=== PATIENT | male | born 1990 ===

== ENCOUNTER 2018-01-06 15:13 | Emergency (ER) | payer MEDICAID, OTHER ==
[2018-01-06 15:15] VITALS: RESP 18; TEMP 98.7; O2SAT 100
[2018-01-06 15:21] VITALS: BMI 26.2
[2018-01-06] MEDS ORDERED: Sodium Chloride 0.9% 1,000 ML IV STA (16:01)
--- NOTE | 2018-01-06 16:17 | RAD ---
HISTORY: SOB COMPARISON: No prior. FINDINGS: LUNGS: No active pulmonary disease. PLEURA: No significant pleural effusion identified, no pneumothorax apparent. CARDIOVASCULAR: Normal. OSSEOUS STRUCTURES: No significant abnormalities. VISUALIZED UPPER ABDOMEN: Normal. OTHER FINDINGS: None. IMPRESSION: No active disease.
[2018-01-06 16:31] LABS: BASO # 0.06 K/mm3 (0.0-2.0); BASO % 0.9 % (0.0-3.0); EOS # 0.1 (0.0-0.7); EOS % 1.1 % (1.5-5.0); GRAN # 4.23 (1.4-6.5); GRAN % 64.3 % (50.0-68.0); LYMPH # 1.8 (1.2-3.4); LYMPH % 26.9 % (22.0-35.0); MEAN CORPUSCULAR HEMOGLOBIN 32.7 pg (25.0-35.0); MEAN CORPUSCULAR HGB CONC 34.4 g/dl (31.0-37.0); MEAN PLATELET VOLUME 12.1 fl (7.0-11.0); MONO # 0.5 (0.1-0.6); MONO % 6.8 % (1.0-6.0); RBC 4.59 10^6/uL (3.5-6.1); RED CELL DISTRIBUTION WIDTH 12.9 % (11.5-14.5); WHITE BLOOD COUNT 6.6 10^3/ul (4.5-11.0)
[2018-01-06 16:39] LABS: ALB/GLOB RATIO 1.5 (1.1-1.8); ALBUMIN 4.3 g/dL (3.0-4.8); ALT/SGPT 51 U/L (7-56); AST/SGOT 38 U/L (17-59); BLOOD UREA NITROGEN 12 mg/dL (7-21); CALCIUM 9.5 mg/dL (8.4-10.5); GFR AFRICAN-AMERICAN > 60; GFR NON-AFRICAN AMERICAN > 60
[2018-01-06 16:45] LABS: URINE BILIRUBIN NEGATIVE (NEGATIVE); URINE BLOOD NEGATIVE (NEGATIVE); URINE GLUCOSE (UA) NEGATIVE (NEGATIVE); URINE LEUKOCYTE ESTERASE NEGATIVE Leu/uL (NEGATIVE); URINE PROTEIN NEGATIVE mg/dL (<30 mg/dL); URINE UROBILINOGEN 0.2 E.U./dL (<1 E.U./dL)
[2018-01-06 16:55] LABS: BARBITURATES, UR NEGATIVE (NEGATIVE); BENZODIAZEPINES, UR NEGATIVE (NEGATIVE); OPIATES, UR NEGATIVE (NEGATIVE); PHENCYCLIDINE, UR NEGATIVE (NEGATIVE)
[2018-01-06 16:57] LABS: TROPONIN I < 0.01 ng/mL
--- NOTE | 2018-01-06 17:04 | ED PDOC ---
Arrival/HPI - General Chief Complaint: Shortness Of Breath Time Seen by Provider: 01/06/18 15:32 Historian: Patient - History of Present Illness Narrative History of Present Illness (Text): 01/06/18 17:01 27yo male with no Past medical history who present with complaint of SOB and generalized abdominal pain since earlier today. Notes that the abdominal pain started 2wweeks ago and SOB started this morning after smoking Marijuana. He denies chest pain, diaphoresis, nausea, vomiting, diarrhea, constipation, fever , chills, sick contact, LE edema, calf pain, cough, any other complaint. Past Medical History - Provider Review Nursing Documentation Reviewed: Yes - Infectious Disease Hx of Infectious Diseases: None - Tetanus Immunization Tetanus Immunization: Unknown - Past Medical History Past Medical History: No Previous - Psychiatric Hx Depression: No Hx Emotional Abuse: No Hx Physical Abuse: No Hx Substance Use: No - Past Surgical History Past Surgical History: No Previous - Suicidal Assessment Feels Threatened In Home Enviroment: No Family/Social History - Physician Review Nursing Documentation Reviewed: Yes Family/Social History: Unknown Family HX Smoking Status: Light Smoker < 10 Cigarettes Daily Hx Alcohol Use: Yes Frequency of alcohol use: Few days per week Hx Substance Use: No Hx Substance Use Treatment: No Allergies/Home Meds Allergies/Adverse Reactions: Allergies No Known Allergies Allergy (Verified 01/06/18 15:29) Review of Systems - Physician Review All systems were reviewed & negative as marked: Yes - Review of Systems Constitutional: Normal Eyes: Normal ENT: Normal Respiratory: SOB. absent: Cough, Wheezing Cardiovascular: Normal Gastrointestinal: Abdominal Pain. absent: Stool Changes, Constipation, Diarrhea , Nausea, Vomiting, Hematochezia, Hematemesis Genitourinary Male: Normal Musculoskeletal: Normal Skin: Normal Neurological: Normal Endocrine: Normal Hemo/Lymphatic: Normal Psychiatric: Normal Physical Exam Vital Signs Reviewed: Yes Vital Signs Temp Pulse Resp BP Pulse Ox 01/06/18 18:01 67 18 110/72 100 01/06/18 18:00 18 01/06/18 15:14 98.7 F 86 18 127/82 100 Temperature: Afebrile Blood Pressure: Normal Pulse: Regular Respiratory Rate: Normal Appearance: Positive for: Well-Appearing, Non-Toxic, Comfortable Pain Distress: None Mental Status: Positive for: Alert and Oriented X 3 - Systems Exam Head: Present: Atraumatic, Normocephalic Pupils: Present: PERRL Extroacular Muscles: Present: EOMI Conjunctiva: Present: Normal Mouth: Present: Moist Mucous Membranes Neck: Present: Normal Range of Motion Respiratory/Chest: Present: Clear to Auscultation, Good Air Exchange. No: Respiratory Distress, Accessory Muscle Use, Wheezes, Decreased Breath Sounds, Rales, Retracting, Rhonchi Cardiovascular: Present: Regular Rate and Rhythm, Normal S1, S2. No: Murmurs Abdomen: Present: Normal Bowel Sounds, Other (Soft). No: Tenderness, Distention , Peritoneal Signs, Rebound, Guarding, McBurney's Point Tender, Rovsing's Sign Present Back: Present: Normal Inspection Upper Extremity: Present: Normal Inspection. No: Cyanosis, Edema Lower Extremity: Present: Normal Inspection. No: Edema Neurological: Present: GCS=15, CN II-XII Intact, Speech Normal Skin: Present: Warm, Dry, Normal Color. No: Rashes Psychiatric: Present: Alert, Oriented x 3, Normal Insight, Normal Concentration Medical Decision Making ED Course and Treatment: 01/06/18 18:02 PT in emergency department for stated history. He was not hypoxic and not in any distress. his lab was unremarkable. 3l of NC was placed while he was in emergency department. He was hydrated and pepcid was given. On re evaluation pt notes complete resolution of his symptoms. His symptom, SOB is likely related to his substance abuse. He was advised to stop using drug and was DC home with pepcid. Referred to his PMD/GI. - Lab Interpretations Lab Results: 01/06/18 16:00 01/06/18 16:00 Lab Results 01/06/18 16:00: Urine Opiates Screen Negative, Urine Methadone Screen Negative, Ur Barbiturates Screen Negative, Ur Phencyclidine Scrn Negative, Ur Amphetamines Screen Negative, U Benzodiazepines Scrn Negative, U Oth Cocaine Metabols Negative, U Cannabinoids Screen Positive H 01/06/18 16:00: Urine Color Yellow, Urine Appearance Clear, Urine pH 6.0, Ur Specific [place] 1.015, Urine Protein Negative, Urine Glucose (UA) Negative, Urine Ketones Negative, Urine Blood Negative, Urine Nitrate Negative, Urine Bilirubin Negative, Urine Urobilinogen 0.2, Ur Leukocyte Esterase Negative 01/06/18 16:00: Sodium 142, Potassium 4.5, Chloride 105, Carbon Dioxide 26, Anion Gap 15, BUN 12, Creatinine 0.9, Est GFR ( Amer) > 60, Est GFR (Non- Af Amer) > 60, Random Glucose 86, Calcium 9.5, Magnesium 2.1, Total Bilirubin 0.3, AST 38, ALT 51, Alkaline Phosphatase 52, Lactate Dehydrogenase 349, Total Creatine Kinase 59, Troponin I < 0.01, Total Protein 7.2, Albumin 4.3, Globulin 2.9, Albumin/Globulin Ratio 1.5 01/06/18 16:00: PT 11.5, INR 1.01, APTT 29.5, D-Dimer, Quantitative < 200 01/06/18 16:00: WBC 6.6, RBC 4.59, Hgb 15.0, Hct 43.6, MCV 95.0, MCH 32.7, MCHC 34.4, RDW 12.9, Plt Count 154, MPV 12.1 H, Gran % 64.3, Lymph % (Auto) 26.9, [place] % (Auto) 6.8 H, Eos % (Auto) 1.1 L, Baso % (Auto) 0.9, Gran # 4.23, Lymph # (Auto) 1.8, [place] # (Auto) 0.5, Eos # (Auto) 0.1, Baso # (Auto) 0.06 01/06/18 15:25: POC Glucose (mg/dL) 127 H - RAD Interpretation Radiology Orders: 01/06/18 16:01 CHEST PORTABLE [RAD] Stat - Medication Orders Current Medication Orders: Discontinued Medications Famotidine (Pepcid) 20 mg IVP STAT STA Stop: 01/06/18 17:05 Last Admin: 01/06/18 17:31 Dose: 20 mg IVP Administration Document 01/06/18 17:31 GMD (Rec: 01/06/18 17:31 [place] [facility] [facility] [id number] Charges for Administration # of IVP Administrations 1 Sodium Chloride (Sodium Chloride 0.9%) 1,000 mls @ 999 mls/hr IV .Q1H1M STA Stop: 01/06/18 17:01 Last Admin: 01/06/18 16:20 Dose: 999 mls/hr eMAR Start Stop Document 01/06/18 16:20 GMD (Rec: 01/06/18 16:20 [place]MD [facility] [place] [facility] [id number] Intravenous Solution Start Date 01/06/18 Start Time 16:20 End Date 01/06/18 End time 17:21 Total Infusion Time 61 Disposition/Present on Arrival - Present on Arrival Any Indicators Present on Arrival: No History of DVT/PE: No History of Uncontrolled Diabetes: No Urinary Catheter: No History of Decub. Ulcer: No History Surgical Site Infection Following: None - Disposition Have Diagnosis and Disposition been Completed?: Yes Diagnosis: SOB (shortness of breath), Abdominal pain, Substance abuse Disposition: HOME/ ROUTINE Disposition Time: 17:50 Patient Plan: Discharge Patient Problems: Current Active Problems Problem Status Onset Abdominal pain Acute SOB (shortness of breath) Acute Condition: STABLE Discharge Instructions (ExitCare): Acute Abdomen (Belly Pain), Shortness of Breath (Dyspnea) (DC) Additional Instructions: Follow up with your Doctor/House Mover Supervisor Stop using drug Return to emergency department for any new symptoms Prescriptions: Famotidine [Pepcid] 20 mg PO DAILY #15 tab Ref[place]: [facility] [place] [facility] [place] [facility] [place] - Follow up with primary Alton House MD [Medical Doctor] - Follow up with primary Forms: [facility] (Amharic)
[2018-01-06 17:11] LABS: INR 1.01 (0.93-1.08); PARTIAL THROMBOPLASTIN TIME 29.5 Seconds (25.1-36.5); PROTHROMBIN TIME 11.5 SECONDS (9.4-12.5)
[2018-01-06 17:24] LABS: URINE APPEARANCE CLEAR (CLEAR); URINE COLOR YELLOW (YELLOW)
[2018-01-06 17:31] LABS: D DIMER < 200 ng/mL (0-243)
[2018-01-06 18:01] VITALS: BP 110/72; PULSE 67
--- NOTE | 2018-01-06 18:14 | CARD ---
APPROVED REPORT EKG Measurement Heart [id number] <Conclusion> Normal sinus rhythm Normal ECG
== END 2018-01-06 18:05 | disposition home or self-care (01) ==
LOC: ED 15:13
DX: R06.02 Shortness of breath (principal); R10.84 Generalized abdominal pain; F19.10 Other psychoactive substance abuse, uncomplicated; F17.210 Nicotine dependence, cigarettes, uncomplicated
CPT/HCPCS: 71045; 80053; 80324; 80345; 80346; 80349; 80353; 80358; 80361; 81003; 82550; 82948; 83615; 83735; 83992; 84484; 85025; 85378; 85610; 85730; 93005; 96361; 96374; 99284; J7030